=== PATIENT | male | born 1935 | race Caucasian/White ===

== ENCOUNTER 2016-07-29 11:06 | Outpatient (CLI) | payer MEDICARE, OTHER ==
[2016-07-29 11:44] LABS: Prothrombin Time 21.5 SEC (12.0-14.7)
== END 2016-07-29 11:07 | disposition home or self-care (01) ==
LOC: NAV LAB 11:06
PROVIDERS: ATTEND Internal Medicine Cardiovascular Disease
DX: I48.91 Unspecified atrial fibrillation (principal); Z79.01 Long term (current) use of anticoagulants
CPT/HCPCS: 36415; 85610

== ENCOUNTER 2016-08-26 14:49 | Outpatient (CLI) | payer MEDICARE, OTHER ==
[2016-08-26 16:24] LABS: Prothrombin Time 22.2 SEC (12.0-14.7)
== END 2016-08-26 14:50 | disposition home or self-care (01) ==
LOC: NAV LAB 14:49
PROVIDERS: ATTEND Internal Medicine Cardiovascular Disease
DX: I48.91 Unspecified atrial fibrillation (principal); Z79.01 Long term (current) use of anticoagulants
CPT/HCPCS: 36415; 85610

== ENCOUNTER 2016-08-28 14:36 | Outpatient (CLI) | payer MEDICARE, OTHER | END 2016-08-28 14:37 | LOC: NAVSJIPCSP 14:36 | PROVIDERS: ATTEND Internal Medicine | DX: E78.5 Hyperlipidemia, unspecified (principal); Z79.899 Other long term (current) drug therapy | CPT/HCPCS: 36415; 80061 ==

== ENCOUNTER 2016-09-26 09:29 | Outpatient (CLI) | payer MEDICARE, OTHER ==
[2016-09-26 10:06] LABS: INR-International Normal Ratio 1.8; Prothrombin Time 21.2 SEC (12.0-14.7)
== END 2016-09-26 09:30 | disposition home or self-care (01) ==
LOC: NAV LAB 09:29
PROVIDERS: ATTEND Internal Medicine Cardiovascular Disease
DX: Z51.81 Encounter for therapeutic drug level monitoring (principal); I48.91 Unspecified atrial fibrillation; Z79.01 Long term (current) use of anticoagulants
CPT/HCPCS: 36415; 85610

== ENCOUNTER 2016-10-17 08:13 | Outpatient (CLI) | payer MEDICARE, MEDICAID ==
[2016-10-17 10:56] LABS: Prothrombin Time 23.6 SEC (12.0-14.7)
== END 2016-10-17 08:14 | disposition home or self-care (01) ==
LOC: NAV LAB 08:13
PROVIDERS: ATTEND Internal Medicine Cardiovascular Disease
DX: I48.91 Unspecified atrial fibrillation (principal); Z79.01 Long term (current) use of anticoagulants
CPT/HCPCS: 36415; 85610

== ENCOUNTER 2016-11-05 09:37 | Outpatient (CLI) | payer MEDICARE ==
[2016-11-05 11:01] LABS: INR-International Normal Ratio 1.8; Prothrombin Time 21.2 SEC (12.0-14.7)
--- NOTE | 2016-11-05 11:25 | CT ---
CT BRAIN WITHOUT CONTRAST: History: Syncope. FINDINGS: No evidence of infarct, hemorrhage, midline shift or abnormal extraaxial collections are seen. The v entricular size appropriate and the basilar cisterns are patent. The bony calvarium is intact. The v isualized paranasal sinuses and mastoid air cells are well aerated. IMPRESSION: No CT evidence of acute intracranial process. POS: [facility]
== END 2016-11-05 09:38 | disposition home or self-care (01) ==
LOC: NAV CT 09:37
PROVIDERS: ATTEND Internal Medicine
DX: R55 Syncope and collapse (principal)
CPT/HCPCS: 36415; 70450; 85610

== ENCOUNTER 2016-12-03 10:40 | Outpatient (CLI) | payer MEDICARE ==
[2016-12-03 11:50] LABS: INR-International Normal Ratio 2.3; Prothrombin Time 26.4 SEC (12.0-14.7)
== END 2016-12-03 10:41 | disposition home or self-care (01) ==
LOC: NAV LAB 10:40
PROVIDERS: ATTEND Internal Medicine Cardiovascular Disease
DX: I48.91 Unspecified atrial fibrillation (principal); Z79.01 Long term (current) use of anticoagulants
CPT/HCPCS: 36415; 85610

== ENCOUNTER 2016-12-06 11:42 | Outpatient (CLI) | payer MEDICARE, OTHER ==
[2016-12-06 12:42] LABS: Cardiac Risk 4.3 (Less than 4.5)
== END 2016-12-06 11:43 | disposition home or self-care (01) ==
LOC: NAVSJIPCSP 11:42
PROVIDERS: ATTEND Internal Medicine
DX: E78.5 Hyperlipidemia, unspecified (principal)
CPT/HCPCS: 80061

== ENCOUNTER 2017-01-27 12:16 | Outpatient (CLI) | payer MEDICARE, OTHER ==
[2017-01-27 13:14] LABS: INR-International Normal Ratio 2.3; Prothrombin Time 26.1 SEC (12.0-14.7)
== END 2017-01-27 12:17 | disposition home or self-care (01) ==
LOC: NAV LAB 12:16
PROVIDERS: ATTEND Internal Medicine Cardiovascular Disease
DX: Z51.81 Encounter for therapeutic drug level monitoring (principal); I48.91 Unspecified atrial fibrillation; Z79.01 Long term (current) use of anticoagulants
CPT/HCPCS: 36415; 85610

== ENCOUNTER 2017-02-27 09:51 | Outpatient (CLI) | payer MEDICARE, OTHER ==
[2017-02-27 12:48] LABS: #Basophils 0.1 thou/uL (0.0-0.2); #Eosinphils 0.6 thou/uL (0.0-0.7); #Lymphocytes 2.3 thou/uL (1.20-3.40); #Monocytes 0.6 thou/uL (0.11-0.59); #Neutrophils 6.4 thou/uL (1.40-6.50); %Basophils 0.9 % (0.0-1.0); %Eosinophils 6.4 % (0.0-10.0); %Lymphocytes 23.1 % (21.0-51.0); %Monocytes 6.1 % (0.0-10.0); %Neutrophils 63.5 % (42.0-75.0); Mean Corpuscular HGB CONC 33.1 g/dL (32.0-36.0); Mean Corpuscular Volume 90.8 fl (80.0-94.0); Mean Platelet Volume 10.1 fL (7.4-10.4); Platelet Count 119 thou/uL (130-400); RBC Distribution Width 11.9 % (11.5-14.5); Red Blood Cell (RBC) Count 5.33 mill/uL (4.70-6.10)
[2017-02-27 13:23] LABS: ALT (SGPT) 21 U/L (8-55); AST (SGOT) 24 U/L (5-34); Albumin 4.2 g/dL (3.4-4.8); Alkaline Phosphatase 88 U/L (40-150); Anion Gap 14 mmol/L (10-20); BUN (Urea Nitrogen) 19 mg/dL (8.4-25.7); Bilirubin, Total 0.8 mg/dL (0.2-1.2); Calc. Creatinine Clearance 0 mL/min (70-130); Calcium 9.2 mg/dL (7.8-10.44); Carbon Dioxide 24 mmol/L (23-31); Cardiac Risk 4.6 (Less than 4.5); Chloride 110 mmol/L (98-107); Cholesterol 146 mg/dl (< 200 Desired); Estimated GFR-MDRD 60; Globulin 3.1 g/dL (2.4-3.5); Glucose 113 mg/dL (83-110); HDL Cholesterol 32 mg/dL (>60 Neg Risk); LDL Cholesterol, Calculated 45 mg/dL; Potassium 4.5 mmol/L (3.5-5.1); Protein, Total 7.3 g/dL (5.8-8.1); Sodium 143 mmol/L (136-145); Triglycerides 347 mg/dL (Less than 150)
[2017-02-27 14:41] LABS: INR-International Normal Ratio 3.1
== END 2017-02-27 09:52 | disposition home or self-care (01) ==
LOC: NAVSJIPCSP 09:51
PROVIDERS: ATTEND Internal Medicine
DX: Z51.81 Encounter for therapeutic drug level monitoring (principal); E78.5 Hyperlipidemia, unspecified; I48.91 Unspecified atrial fibrillation; Z79.899 Other long term (current) drug therapy; Z79.01 Long term (current) use of anticoagulants
CPT/HCPCS: 36415; 80053; 80061; 85025; 85610

== ENCOUNTER 2017-03-21 10:02 | Outpatient (CLI) | payer MEDICARE, OTHER ==
[2017-03-21 10:32] LABS: INR-International Normal Ratio 2.5; Prothrombin Time 27.8 SEC (12.0-14.7)
[2017-03-21 10:37] LABS: Follow-up Coag Comp? YES; Follow-up Result - Coag REPORT FAXED
== END 2017-03-21 10:03 | disposition home or self-care (01) ==
LOC: NAV LAB 10:02
PROVIDERS: ATTEND Internal Medicine Cardiovascular Disease
DX: Z51.81 Encounter for therapeutic drug level monitoring (principal); I48.91 Unspecified atrial fibrillation; Z79.01 Long term (current) use of anticoagulants
CPT/HCPCS: 36415; 85610

== ENCOUNTER → 2017-03-25 | Emergency (ER) | payer MEDICARE, OTHER ==
[~2017-03-25] MED LIST: predniSONE 20 MG TAB ONE
--- NOTE | 2017-03-25 10:36 | RAD ---
LEFT FOOT THREE VIEWS: History: Foot pain. Comparison: None. FINDINGS: No acute fracture or malalignment. Mild degenerative change of the great toe metatarsal phalangeal j oint. Hallux sesamoids are intact. Moderate vascular calcifications. Small plantar and dorsal calcaneal spurs. IMPRESSION: No acute abnormality of the foot. POS: [facility]
[2017-03-25 10:43] LABS: #Basophils 0.1 thou/uL (0.0-0.2); #Eosinphils 0.4 thou/uL (0.0-0.7); #Monocytes 0.7 thou/uL (0.11-0.59); #Neutrophils 4.7 thou/uL (1.40-6.50); %Basophils 0.7 % (0.0-1.0); %Eosinophils 4.9 % (0.0-10.0); %Lymphocytes 25.2 % (21.0-51.0); %Monocytes 9.2 % (0.0-10.0); %Neutrophils 60.1 % (42.0-75.0); Hemoglobin 14.9 g/dL (14.0-18.0); Mean Corpuscular HGB CONC 33.3 g/dL (32.0-36.0); Mean Corpuscular Hemoglobin 29.5 pg (27.0-31.0); Mean Corpuscular Volume 88.5 fl (80.0-94.0); Mean Platelet Volume 11.5 fL (7.4-10.4); Platelet Count 101 thou/uL (130-400); RBC Distribution Width 11.5 % (11.5-14.5); Red Blood Cell (RBC) Count 5.06 mill/uL (4.70-6.10); White Blood Cell (WBC) Count 7.8 thou/uL (4.8-10.8)
[2017-03-25 10:52] LABS: ALT (SGPT) 16 U/L (8-55); AST (SGOT) 16 U/L (5-34); Albumin 3.7 g/dL (3.4-4.8); Alkaline Phosphatase 85 U/L (40-150); Anion Gap 13 mmol/L (10-20); BUN (Urea Nitrogen) 15 mg/dL (8.4-25.7); Bilirubin, Total 0.7 mg/dL (0.2-1.2); CRP (Inflammatory) 0.64 mg/dL (= or < 0.5); Calc. Creatinine Clearance 0 mL/min (70-130); Calcium 9.2 mg/dL (7.8-10.44); Carbon Dioxide 26 mmol/L (23-31); Chloride 108 mmol/L (98-107); Estimated GFR-MDRD 72; Glucose 109 mg/dL (83-110); Potassium 4.5 mmol/L (3.5-5.1); Protein, Total 6.7 g/dL (5.8-8.1); Sodium 142 mmol/L (136-145); Uric Acid 6.2 mg/dL (3.5-7.2)
== END ==
LOC: NAV ERS 09:38
DX: M79.672 Pain in left foot (principal); N40.0 Benign prostatic hyperplasia without lower urinary tract symptoms; I49.9 Cardiac arrhythmia, unspecified; E78.5 Hyperlipidemia, unspecified; F17.220 Nicotine dependence, chewing tobacco, uncomplicated; Z79.82 Long term (current) use of aspirin; Z79.01 Long term (current) use of anticoagulants; Z79.899 Other long term (current) drug therapy
CPT/HCPCS: 36415; 80053; 84550; 85025; 86140; J7506

== ENCOUNTER 2017-04-03 08:32 | Emergency (ER) | payer MEDICARE, MEDICAID ==
[2017-04-03 09:11] LABS: #Basophils 0.1 thou/uL (0.0-0.2); #Eosinphils 0.4 thou/uL (0.0-0.7); #Lymphocytes 1.5 thou/uL (1.20-3.40); #Monocytes 0.7 thou/uL (0.11-0.59); #Neutrophils 4.6 thou/uL (1.40-6.50); %Basophils 0.7 % (0.0-1.0); %Eosinophils 5.9 % (0.0-10.0); %Lymphocytes 20.8 % (21.0-51.0); %Monocytes 8.9 % (0.0-10.0); %Neutrophils 63.6 % (42.0-75.0); Hemoglobin 15.1 g/dL (14.0-18.0); Mean Corpuscular Hemoglobin 28.8 pg (27.0-31.0); Mean Corpuscular Volume 90.1 fl (80.0-94.0); Mean Platelet Volume 10.5 fL (7.4-10.4); Platelet Count 124 thou/uL (130-400); RBC Distribution Width 11.8 % (11.5-14.5); Red Blood Cell (RBC) Count 5.25 mill/uL (4.70-6.10); White Blood Cell (WBC) Count 7.3 thou/uL (4.8-10.8)
[2017-04-03] MEDS ORDERED: Sodium Chloride 0.9% 1,000 ML ONE (09:12)
[2017-04-03] MEDS ORDERED: Ondansetron HCl/PF 4 MG/2 ML Vial ONE (09:13)
[2017-04-03 09:24] LABS: CKMB 1.3 ng/mL (0-6.6); Troponin I Less than 0.010 ng/mL (< 0.028)
[2017-04-03 09:26] LABS: ALT (SGPT) 19 U/L (8-55); AST (SGOT) 16 U/L (5-34); Alkaline Phosphatase 101 U/L (40-150); Anion Gap 13 mmol/L (10-20); BUN (Urea Nitrogen) 21 mg/dL (8.4-25.7); Bilirubin, Total 0.7 mg/dL (0.2-1.2); CK (CPK) 47 U/L (30-200); Calc. Creatinine Clearance 0 mL/min (70-130); Calcium 9.2 mg/dL (7.8-10.44); Carbon Dioxide 26 mmol/L (23-31); Chloride 106 mmol/L (98-107); Estimated GFR-MDRD 69; Globulin 3.2 g/dL (2.4-3.5); Glucose 125 mg/dL (83-110); Lipase 31 U/L (8-78); Potassium 4.1 mmol/L (3.5-5.1); Protein, Total 7.2 g/dL (5.8-8.1); Sodium 141 mmol/L (136-145)
== END 2017-04-03 10:10 | disposition home or self-care (01) ==
LOC: NAV ERS 08:32
DX: R56.9 Unspecified convulsions (principal); I49.9 Cardiac arrhythmia, unspecified; E78.5 Hyperlipidemia, unspecified; N40.0 Benign prostatic hyperplasia without lower urinary tract symptoms; F17.220 Nicotine dependence, chewing tobacco, uncomplicated; Z79.82 Long term (current) use of aspirin; Z79.01 Long term (current) use of anticoagulants; Z79.899 Other long term (current) drug therapy
CPT/HCPCS: 36415; 80053; 82550; 82553; 83690; 84484; 85025; 93005; 94760; 96361; 96374; J2405; J7050

== ENCOUNTER 2017-06-05 14:37 | Outpatient (CLI) | payer MEDICARE, OTHER ==
--- NOTE | 2017-06-05 15:44 | CT ---
CT HEAD WITHOUT CONTRAST: Technique: Multiple tomograms were obtained through the head without IV enhancement. History: Dizziness. Ventricles have normal size and position. No evidence of intracranial mass or hemorrhage. No evidence of infarct. IMPRESSION: No evidence of acute process. POS: [facility]
== END 2017-06-05 14:38 | disposition home or self-care (01) ==
LOC: NAV CT 14:37
PROVIDERS: ATTEND Internal Medicine
DX: W19.XXXA Unspecified fall, initial encounter (principal)
CPT/HCPCS: 70450

== ENCOUNTER 2017-08-06 15:56 | Outpatient (CLI) | payer MEDICARE, OTHER ==
--- NOTE | 2017-08-06 16:21 | RAD ---
THORACIC SPINE THREE VIEWS: 08/06/17 HISTORY: Back pain. FINDINGS: There are twelve (12) thoracic type vertebrae. Pedicles are intact. Gentle rightward convexed curvatu re is apparent on the frontal view. Vertebral body heights and AP alignment are maintained. There is osteophytosis throughout the vertebral bodies and facets. IMPRESSION: Thoracic spondylosis. No evidence of compression fracture. POS: [facility]
--- NOTE | 2017-08-06 16:33 | RAD ---
THREE VIEWS OF THE CERVICAL SPINE 08/06/17 COMPARISON: None. HISTORY: Fell last month and injured back with pain from C5 to T4. FINDINGS: Three views of the cervical spine shows normal height and alignment of the vertebral bodies without s ignificant fracture or subluxation. No prevertebral soft tissue swelling is seen. Mild to moderate de generative changes are seen throughout the cervical spine. IMPRESSION: Degenerative changes of the cervical spine without acute osseous abnormality. POS: [facility]
== END 2017-08-06 15:57 | disposition home or self-care (01) ==
LOC: NAV RAD 15:56
PROVIDERS: ATTEND Physical Medicine & Rehabilitation
DX: M54.2 Cervicalgia (principal); M54.6 Pain in thoracic spine; M47.812 Spondylosis without myelopathy or radiculopathy, cervical region
CPT/HCPCS: 72040; 72072

== ENCOUNTER 2017-10-02 10:51 | Emergency (ER) | payer MEDICARE, MEDICAID, OTHER | END 2017-10-02 12:12 | disposition home or self-care (01) | LOC: NAV ERS 10:51 | DX: R09.81 Nasal congestion (principal); G40.909 Epilepsy, unspecified, not intractable, without status epilepticus; N40.0 Benign prostatic hyperplasia without lower urinary tract symptoms; E78.5 Hyperlipidemia, unspecified; F17.220 Nicotine dependence, chewing tobacco, uncomplicated; Z79.01 Long term (current) use of anticoagulants; Z79.82 Long term (current) use of aspirin; Z79.899 Other long term (current) drug therapy | CPT/HCPCS: 87804; 99283 ==

== ENCOUNTER 2017-10-11 10:19 | Emergency (ER) | payer MEDICARE, MEDICAID ==
[2017-10-11] MEDS ORDERED: cefTRIAXone\\ROCEPHIN 1 GM VIAL ONE (12:57)
[2017-10-11] MEDS ORDERED: Lidocaine 1% 20 ML MDV ONE (12:57)
--- NOTE | 2017-10-11 13:09 | RAD ---
CHEST 2 VIEWS: Date: 10/11/17 HISTORY: Cough and congestion. FINDINGS: Cardiac silhouette and pulmonary vasculature are unremarkable. Lungs remain hyperinflated. Parenchyma l opacity at the right infrahilar level is best demonstrated on the lateral view with prominent infil trate. Left lung is clear. Mediastinum is midline with a dual lead left subclavian cardiac electronic device. IMPRESSION: New right infrahilar infiltrate. Clinical correlation regarding other signs and symptoms of right low er lobe pneumonitis is required. Please consider radiographic follow-up after medical treatment to ev aluate for resolution. POS: [facility]
--- NOTE | 2017-10-11 19:10 | CT ---
NONCONTRAST CT HEAD: 10/11/17 HISTORY: Headache and shortness of breath since . COMPARISON: 06/05/17 FINDINGS: There is no evidence of a hemorrhage, acute infarction, mass effect or midline shift. Ventricular sys tem is normal in size, shape and position. There has been no interval change from the prior exam. IMPRESSION: No acute intracranial abnormalities demonstrated. POS: [facility]
== END 2017-10-11 13:45 | disposition home or self-care (01) ==
LOC: NAV ERS 10:19
DX: J18.9 Pneumonia, unspecified organism (principal); N40.0 Benign prostatic hyperplasia without lower urinary tract symptoms; F17.220 Nicotine dependence, chewing tobacco, uncomplicated
CPT/HCPCS: 70450; 71046; 93005; 96372; J0696; J2001

== ENCOUNTER 2017-12-02 11:45 | Outpatient (CLI) | payer MEDICARE, OTHER ==
--- NOTE | 2017-12-02 13:47 | CT ---
ABDOMEN AND PELVIS CT NONCONTRAST ENHANCED: HISTORY: Left renal colic. Gross hematuria. TECHNIQUE: Noncontrast enhanced CT images of the abdomen and pelvis are obtained. FINDINGS: The lung bases are unremarkable. There is an intracardiac pacing device. No evidence of free intrap eritoneal air is seen. The liver contains some calcifications, likely representing hepatic granulomas. A similar finding is also seen in the spleen. The pancreas is unremarkable. The gallbladder has been surgically removed . Adrenal glands are unremarkable. The right kidney contains some exophytic lesions, likely representing renal cysts. No definite evide nce of right-sided hydroureteronephrosis is seen. Nonobstructing mid pole left renal calculi are also seen. There is a moderate degree of left-sided h ydroureteronephrosis. The left ureter is dilated all the way to the left ureterovesical junction, wh ere there is an approximately 2 to 3 mm distal left ureteral calculus at the left ureterovesical junc tion. This is compatible with a partially obstructing distal left ureteral calculus. The small bowel is unremarkable. Numerous descending colonic diverticula are present. IMPRESSION: Left-sided hydroureteronephrosis with obstructing left ureteral calculus in the distal-most aspect of the left ureter. POS: [facility]
== END 2017-12-02 11:46 | disposition home or self-care (01) ==
LOC: NAV RAD 11:45
PROVIDERS: ATTEND Internal Medicine
DX: N13.2 Hydronephrosis with renal and ureteral calculous obstruction (principal); I48.91 Unspecified atrial fibrillation
CPT/HCPCS: 74176

== ENCOUNTER 2017-12-02 12:04 | Emergency (ER) | payer MEDICARE, OTHER ==
[2017-12-02 12:13] LABS: #Eosinphils 0.3 thou/uL (0.0-0.7); #Lymphocytes 1.9 thou/uL (1.20-3.40); #Neutrophils 6.7 thou/uL (1.40-6.50); %Basophils 0.5 % (0.0-1.0); %Eosinophils 3.1 % (0.0-10.0); %Monocytes 9.6 % (0.0-10.0); %Neutrophils 67.8 % (42.0-75.0); Hemoglobin 15.6 g/dL (14.0-18.0); Mean Corpuscular HGB CONC 31.5 g/dL (32.0-36.0); Mean Corpuscular Hemoglobin 28.7 pg (27.0-31.0); Mean Corpuscular Volume 91.2 fl (80.0-94.0); Mean Platelet Volume 10.8 fL (7.4-10.4); Platelet Count 133 thou/uL (130-400); RBC Distribution Width 12.3 % (11.5-14.5); Red Blood Cell (RBC) Count 5.44 mill/uL (4.70-6.10); White Blood Cell (WBC) Count 9.9 thou/uL (4.8-10.8)
[2017-12-02 12:25] LABS: INR-International Normal Ratio 3.9; Prothrombin Time 40.1 SEC (12.0-14.7)
[2017-12-02 12:27] LABS: ALT (SGPT) 18 U/L (8-55); AST (SGOT) 20 U/L (5-34); Alkaline Phosphatase 142 U/L (40-150); Anion Gap 13 mmol/L (10-20); BUN (Urea Nitrogen) 24 mg/dL (8.4-25.7); Bilirubin, Total 0.5 mg/dL (0.2-1.2); Calc. Creatinine Clearance 0 mL/min (70-130); Carbon Dioxide 28 mmol/L (23-31); Chloride 105 mmol/L (98-107); Dilantin 8.2 ug/mL (10.0-20.0); Estimated GFR-MDRD 60; Globulin 3.2 g/dL (2.4-3.5); Glucose 108 mg/dL (83-110); Potassium 4.3 mmol/L (3.5-5.1); Protein, Total 7.2 g/dL (5.8-8.1); Sodium 142 mmol/L (136-145)
[2017-12-02 12:29] LABS: CKMB 1.2 ng/mL (0-6.6); Troponin I Less than 0.010 ng/mL (< 0.028)
[2017-12-02 12:40] LABS: Bilirubin Moderate (Negative); Blood, Urine Large (Negative); Clarity Cloudy (Clear); Glucose, Urine (Dipstick) Negative (Negative); Leukocyte Negative (Negative); Nitrite Negative (Negative); Protein, Urine (Dipstick) > or equal to 300 mg/dL (Neg-Trace); Specific Gravity, Urine 1.025 (1.005-1.030)
[2017-12-02 12:47] LABS: Bacteria/HPF None Seen HPF (None Seen); RBC/HPF GREATER THAN 50-TNTC HPF (0-3); Squamous Epithelial 0-3 HPF (0-3)
[2017-12-02 14:46] LABS: Follow-up Chemistry Comp? YES; Follow-up Result - Chemistry REPORT FAXED
== END 2017-12-02 15:11 | disposition home or self-care (01) ==
LOC: NAV ERS 12:04
DX: G40.909 Epilepsy, unspecified, not intractable, without status epilepticus (principal); R31.9 Hematuria, unspecified; E78.5 Hyperlipidemia, unspecified; F17.220 Nicotine dependence, chewing tobacco, uncomplicated; N40.0 Benign prostatic hyperplasia without lower urinary tract symptoms; Z79.82 Long term (current) use of aspirin; Z79.899 Other long term (current) drug therapy; Z79.01 Long term (current) use of anticoagulants
CPT/HCPCS: 36415; 36416; 74176; 80053; 80185; 81003; 81015; 82553; 84484; 85025; 85610; 93005

== ENCOUNTER 2017-12-16 10:29 | Outpatient (CLI) | payer MEDICARE, OTHER ==
[2017-12-16 10:49] LABS: Prothrombin Time 23.4 SEC (12.0-14.7)
== END 2017-12-16 10:30 | disposition home or self-care (01) ==
LOC: NAV LAB 10:29
PROVIDERS: ATTEND Psychiatry & Neurology Neurology
DX: Z51.81 Encounter for therapeutic drug level monitoring (principal); I48.91 Unspecified atrial fibrillation; G40.909 Epilepsy, unspecified, not intractable, without status epilepticus; Z79.01 Long term (current) use of anticoagulants
CPT/HCPCS: 36415; 80185; 85610

== ENCOUNTER 2018-01-22 09:01 | Emergency (ER) | payer MEDICARE, OTHER ==
--- NOTE | 2018-01-22 10:01 | CT ---
CT OF THE BRAIN WITHOUT CONTRAST: Date: 01/22/18 COMPARISON: 10/11/17. HISTORY: Dizziness and blurry vision over the past few days. TECHNIQUE: Multiple contiguous axial images were obtained in a CT of the brain without contrast. FINDINGS: There are subtle scattered hypodensities in the subcortical and periventricular white matter, likely secondary to small vessel ischemic disease. No large confluent infarction is seen. There is no eviden ce of hydrocephalus, intracranial hemorrhage, or extra-axial fluid collection. The calvarium and overlying soft tissues are unremarkable. Fluid is seen in the left frontal sinuses. The other paranasal sinuses and mastoid air cells are well aerated. IMPRESSION: No evidence of acute intracranial abnormality. POS: [facility]
[2018-01-22 10:02] LABS: INR-International Normal Ratio 2.7; PTT 36.6 SEC (22.9-36.1); Prothrombin Time 28.4 SEC (12.0-14.7)
[2018-01-22 10:06] LABS: #Basophils 0.1 thou/uL (0.0-0.2); #Eosinphils 0.6 thou/uL (0.0-0.7); #Lymphocytes 1.8 thou/uL (1.20-3.40); #Monocytes 0.9 thou/uL (0.11-0.59); #Neutrophils 4.6 thou/uL (1.40-6.50); %Eosinophils 8.1 % (0.0-10.0); %Lymphocytes 22.7 % (21.0-51.0); %Monocytes 11.1 % (0.0-10.0); %Neutrophils 57.1 % (42.0-75.0); Hemoglobin 15.4 g/dL (14.0-18.0); Mean Corpuscular HGB CONC 33.7 g/dL (32.0-36.0); Mean Corpuscular Hemoglobin 30.2 pg (27.0-31.0); Mean Corpuscular Volume 89.8 fL (78.0-98.0); Mean Platelet Volume 10.7 fL (7.4-10.4); Platelet Count 131 thou/uL (130-400); RBC Distribution Width 11.9 % (11.5-14.5)
[2018-01-22 10:09] LABS: ALT (SGPT) 20 U/L (8-55); AST (SGOT) 32 U/L (5-34); Albumin 3.8 g/dL (3.4-4.8); Alkaline Phosphatase 141 U/L (40-150); Anion Gap 14 mmol/L (10-20); BUN (Urea Nitrogen) 22 mg/dL (8.4-25.7); Bilirubin, Total 0.5 mg/dL (0.2-1.2); CK (CPK) 608 U/L (30-200); Calc. Creatinine Clearance 0 mL/min (70-130); Calcium 9.2 mg/dL (7.8-10.44); Carbon Dioxide 23 mmol/L (23-31); Chloride 109 mmol/L (98-107); Estimated GFR-MDRD 72; Globulin 2.9 g/dL (2.4-3.5); Glucose 114 mg/dL (83-110); Potassium 4.5 mmol/L (3.5-5.1); Protein, Total 6.7 g/dL (5.8-8.1); Sodium 141 mmol/L (136-145)
[2018-01-22 10:10] LABS: CKMB 5.6 ng/mL (0-6.6); Troponin I Less than 0.010 ng/mL (< 0.028)
== END 2018-01-22 11:59 | disposition home or self-care (01) ==
LOC: NAV ERS 09:01
DX: M62.82 Rhabdomyolysis (principal); H53.8 Other visual disturbances; R89.2 Abnormal level of other drugs, medicaments and biological substances in specimens from other organs, systems and tissues; Z79.01 Long term (current) use of anticoagulants; E78.5 Hyperlipidemia, unspecified; F17.220 Nicotine dependence, chewing tobacco, uncomplicated; Z79.899 Other long term (current) drug therapy; Z79.82 Long term (current) use of aspirin
CPT/HCPCS: 70450; 80053; 80185; 82553; 84484; 85025; 85610; 85730; 93005; 94760

== ENCOUNTER 2019-12-15 11:55 | Outpatient (CLI) | payer MEDICARE, OTHER ==
--- NOTE | 2019-12-15 14:00 | RAD ---
TWO VIEW CHEST: 12/15/19 INDICATIONS: Shortness of breath. COMPARISON: 08/19/18 portable film. The lungs are well aerated. There is new parenchymal opacity in the medial rig ht lung base at the cardiophrenic angle when compared to the prior study. This could represent focal atelectasis although infiltrate cannot be excluded. Lungs otherwise appear unchanged. No evidence of vascular congestion. Borderline cardiomegaly with du al lead pacemaker device again noted. IMPRESSION: Evidence of new parenchymal density in the medial right lung base at the cardiophrenic angle. Atelect asis and/or infiltrate are considerations. Follow-up film suggested. POS: [facility]
== END 2019-12-15 11:56 | disposition home or self-care (01) ==
LOC: NAV RAD 11:55
PROVIDERS: ATTEND Internal Medicine Cardiovascular Disease
DX: R06.02 Shortness of breath (principal); J98.4 Other disorders of lung
CPT/HCPCS: 71046